=== PATIENT | male | born 1960 | race Caucasian/White ===

== ENCOUNTER → 2019-08-20 08:56 | Outpatient (BNVA) | payer MEDICARE, MEDICAID, SELFPAY | PROVIDERS: Family Provider Internal Medicine; PCP Family Medicine; Visit Provider Anesthesiology | DX: M54.5 Low back pain (principal); Z79.891 Long term (current) use of opiate analgesic | CPT/HCPCS: 99204 ==

== ENCOUNTER → 2020-08-12 11:10 | Outpatient (BNVA) | payer MEDICARE, MEDICAID, SELFPAY | PROVIDERS: Family Provider Internal Medicine; PCP Family Medicine; Visit Provider Family Medicine | DX: I10 Essential (primary) hypertension (principal); K21.9 Gastro-esophageal reflux disease without esophagitis; G47.00 Insomnia, unspecified; M54.5 Low back pain; G89.29 Other chronic pain; Z72.0 Tobacco use; J44.9 Chronic obstructive pulmonary disease, unspecified; I73.9 Peripheral vascular disease, unspecified; E78.2 Mixed hyperlipidemia; M79.89 Other specified soft tissue disorders | CPT/HCPCS: 80053; 80061; 85025 ==

== ENCOUNTER 2020-09-10 12:42 | Outpatient (CLI) | payer MEDICARE, MEDICAID, SELFPAY ==
--- NOTE | 2020-09-10 13:30 | USCV_ITS ---
Barrie Velázquez Age: 59 Gender: M : 1960 Exam Date: 09/10/2020 13:08 Ordering Phys: Emmy Collado MD Technologist: Morena Bah Exam Location: [facility] [place] Indication: H/O PVD Risk Factors: Previous Vascular Surgery: RIGHT LEFT BP: 168.0 / 94.00 BP: 131.0/ 96.00 0 0 Waveform Velocity (cm/s) Velocity (cm/s) Waveform Iliac Prox 74.5 Monophasic Iliac Mid 107.4 Monophasic Iliac Distal 97.3 Monophasic THERAPEUTIC SUPPORT STAFF 96.2 Monophasic SFA Prox 88.2 Monophasic SFA Mid 82.3 Monophasic SFA Dist 70.5 Monophasic POP 47.6 Monophasic CHILD DEVELOPMENT TEACHER 25.6 Monophasic DPA 33.3 Monophasic JERICHO 0.5 F[address]INGS LT CHILD DEVELOPMENT TEACHER 90 LT DPA 70 Monophasic and continuous waveforms in the iliac, femoral, popliteal and anterior tibial artery on the right side Monophasic waveform in the posterior tibial artery on the left side CONCLUSIONS 1. Abnormal resting JERICHO on the left side, suggestive of moderately severe peripheral artery disease. 2. Abnormal Doppler waveforms, suggestive of high-grade stenosis in the aortoiliac segment with collateral filling in the left lower extremity arteries. No similar previous studies are available for comparison Dr Lily Lamar MD [facility] (Electronically Signed) Final Date: 10 September 2020 20:28 S
== END 2020-09-10 12:43 | disposition home or self-care (01) ==
LOC: US 12:46
PROVIDERS: PCP Family Medicine; Visit Provider Family Medicine
DX: I73.9 Peripheral vascular disease, unspecified (principal)
CPT/HCPCS: 93926